=== PATIENT | female | born 1980 | race Caucasian/White ===

== ENCOUNTER 2023-12-30 16:15 | Inpatient (IN) | payer OTHER ==
[2023-12-30 17:58] LABS: PH,URINE 5.5 (5.0-8.0); URINE APPEARANCE CLOUDY; URINE BILIRUBIN NEGATIVE (NEGATIVE); URINE COLOR YELLOW; URINE GLUCOSE (UA) NEGATIVE (NEGATIVE); URINE KETONE NEGATIVE (NEGATIVE); URINE LEUK ESTERASE NEGATIVE (NEGATIVE); URINE NITRITE NEGATIVE (NEGATIVE); URINE PROTEIN NEGATIVE (NEGATIVE); URINE UROBILINOGEN 0.2 mg/dL (0.2-1.0)
[2023-12-30 18:28] LABS: BASO % 0.3 % (0-2.0); LYMPH % 20.8 % (8-40); MCH 29.3 pg (25.7-33.7); MCHC 34.4 g/dl (32.0-36.0); MEAN CELL VOLUME 85.3 fl (80-96); MEAN PLT VOLUME 8.1 fl (7.5-11.1); MONO % 8.6 % (3.8-10.2); NEUT % 69.3 % (42.8-82.8); PLATELET COUNT 203 10^3/uL (134-434); RDW 13.8 % (11.6-15.6); WHITE BLOOD COUNT 8.6 K/mm3 (4.0-10.0)
[2023-12-30 18:35] LABS: INR 0.97 (0.83-1.09)
[2023-12-30 18:38] LABS: ACTIVATED PTT 27.1 SECONDS (25.2-36.5)
[2023-12-30 18:40] LABS: POTASSIUM 4.1 mmol/L (3.5-5.1)
[2023-12-30 18:42] LABS: ALBUMIN 2.4 g/dl (3.4-5.0); BLOOD UREA NITROGEN 8.8 mg/dL (7-18)
[2023-12-30 18:45] LABS: CREATININE 0.6 mg/dL (0.55-1.3)
[2023-12-30 18:47] LABS: BILIRUBIN,TOTAL 0.2 mg/dL (0.2-1); TOT PROT 6.3 g/dl (6.4-8.2)
[2023-12-30 20:43] VITALS: BMI 34.7
[2023-12-30] MEDS: ELECTROLYTE-148 SOLN 500 ML IV ONE (21:30)
[2023-12-30] MEDS ORDERED: OXYTOCIN 30 UNITS in 0.9% NS 30 UNIT/500 ML INFUS.BAG IVPB ONE (21:57)
[2023-12-30] MEDS: OXYTOCIN 30 UNITS in 0.9% NS 30 UNIT/500 ML INFUS.BAG IVPB SCH (22:00)
[2023-12-30] MEDS: ELECTROLYTE-148 SOLN 1,000 ML IV SCH (22:00)
[2023-12-31] MEDS: FAMOTIDINE 20 MG TABLET PO PRN (03:25)
[2023-12-31 08:08] LABS: INR 0.96 (0.83-1.09)
[2023-12-31 08:26] LABS: HEMATOCRIT 33.8 % (32.4-45.2); HEMOGLOBIN 11.6 GM/dL (10.7-15.3); MCH 28.9 pg (25.7-33.7); MCHC 34.4 g/dl (32.0-36.0); MEAN PLT VOLUME 8.3 fl (7.5-11.1); PLATELET COUNT 194 10^3/uL (134-434); RBC 4.03 M/mm3 (3.60-5.2); RDW 14.4 % (11.6-15.6); RETICULOCYTES 1.98 % (0.5-1.5); WHITE BLOOD COUNT 7.9 K/mm3 (4.0-10.0)
[2023-12-31 09:13] LABS: URIC ACID 3.6 mg/dL (2.6-7.2)
[2023-12-31] MEDS ORDERED: FENTANYL/BUPIVACAINE/NS/PF - PCEA - 50 ML DISP.SYRIN EP ONE ×2 (19:12→23:57)
[2023-12-31] MEDS ORDERED: NALOXONE HCL 0.4 MG/ML VIAL IVPUSH PRN (19:23)
[2023-12-31] MEDS ORDERED: FENTANYL CITRATE/PF 50 MCG/ML VIAL ONE (19:25)
[2023-12-31] MEDS ORDERED: BUPIVACAINE HCL/PF 0.25% (2.5MG/ML) 10 ML VIAL ONE (19:25)
[2023-12-31] MEDS: FENTANYL/BUPIVACAINE/NS/PF - PCEA - 50 ML DISP.SYRIN EP SCH (19:30)
[2023-12-31] MEDS: BUTORPHANOL TARTRATE 1 MG/ML VIAL IVPB ONE (20:10)
[2023-12-31] MEDS: PROMETHAZINE HCL 25 MG/1 ML VIAL IVPB ONE (20:10)
[2023-12-31] MEDS ORDERED: OXYTOCIN 20 UNITS in 0.9% NS 20 UNIT/1,000 ML INFUS.BAG IV ONE (20:38)
[2024-01-01] MEDS ORDERED: OXYTOCIN 30 UNITS in 0.9% NS 30 UNIT/500 ML INFUS.BAG IVPB ONE (03:24)
[2024-01-01] MEDS ORDERED: FENTANYL/BUPIVACAINE/NS/PF - PCEA - 50 ML DISP.SYRIN EP ONE (04:54)
[2024-01-01] MEDS: CITRIC ACID/SODIUM CITRATE 30 ML UNIT-DOSE CUP PO ONE ×2 (06:30→10:14)
[2024-01-01] MEDS: ELECTROLYTE-148 SOLN 500 ML IV ONE (06:30)
[2024-01-01] MEDS: ELECTROLYTE-148 SOLN 1,000 ML IV SCH (06:59)
[2024-01-01] MEDS ORDERED: FENTANYL CITRATE/PF 50 MCG/ML VIAL ONE (07:22)
[2024-01-01] MEDS ORDERED: LIDO 2%/EPI 1:200000 PRESRVFRE (20 ML SDVIAL) ONE (07:23)
[2024-01-01] MEDS ORDERED: PHENYLEPHRINE HCL 10 MG/1 ML SINGLE DOSE VIAL ONE (07:39)
[2024-01-01] MEDS ORDERED: SODIUM CHLORIDE 0.9% P/F 10 ML VIAL IJ ONE (07:52)
[2024-01-01] MEDS ORDERED: ceFAZolin SODIUM 1 GM VIAL ONE (07:52)
[2024-01-01] MEDS ORDERED: morphine SULFATE/PF 1 MG/2 ML (2cc Syringe - QUVA) ONE (07:53)
[2024-01-01] MEDS ORDERED: OXYTOCIN 10 UNITS/ML VIAL ONE ×2 (07:58→08:04)
[2024-01-01] MEDS ORDERED: METHYLERGONOVINE MALEATE 0.2 MG/1 ML AMP IM PRN (08:40)
[2024-01-01 09:25] LABS: CORD HCO3 22.4 mmHg (20-29); CORD PCO2 50.7 mmHg (30-78); CORD pH 7.264 (7.14-7.44)
[2024-01-01 09:26] LABS: CORD HCO3 23.7 mmHg (20-29); CORD PCO2 62.3 mmHg (30-78); CORD pH 7.199 (7.14-7.44)
[2024-01-01] MEDS: OXYTOCIN 20 UNITS in 0.9% NS 20 UNIT/1,000 ML INFUS.BAG IV SCH (09:45)
[2024-01-01] MEDS ORDERED: OXYTOCIN 20 UNITS in 0.9% NS 20 UNIT/1,000 ML INFUS.BAG IV ONE (10:00)
[2024-01-01] MEDS: ENOXAPARIN NA (PORCINE) 40 MG/0.4 ML DISP.SYRIN SQ SCH (11:35)
[2024-01-01] MEDS: ACETAMINOPHEN 1000 MG/100 ML BAG IVPB PRN (11:45)
[2024-01-02] MEDS: IBUPROFEN 600 MG TABLET (FP) PO PRN (05:39)
[2024-01-02] MEDS: SIMETHICONE 80 MG TAB.CHEW (FP) PO PRN (05:39)
[2024-01-02 07:04] LABS: BASO % 0.2 % (0-2.0); EOS % 0.3 % (0-4.5); HEMATOCRIT 30.7 % (32.4-45.2); HEMOGLOBIN 10.8 GM/dL (10.7-15.3); LYMPH % 12.2 % (8-40); MCH 29.5 pg (25.7-33.7); MEAN CELL VOLUME 84.2 fl (80-96); MEAN PLT VOLUME 7.8 fl (7.5-11.1); NEUT % 79.3 % (42.8-82.8); PLATELET COUNT 185 10^3/uL (134-434); RBC 3.65 M/mm3 (3.60-5.2); WHITE BLOOD COUNT 9.3 K/mm3 (4.0-10.0)
[2024-01-02] MEDS ORDERED: BISACODYL 10 MG SUPP.RECT RC PRN (08:40)
[2024-01-02] MEDS: oxyCODONE HCL 5 MG TABLET PO PRN (09:16)
[2024-01-03] MEDS: oxyCODONE HCL 5 MG TABLET PO PRN (03:22)
[2024-01-03] MEDS: NIFEdipine E.R. 30 MG TABLET PO SCH (13:35)
[2024-01-03 23:18] VITALS: RESP 18
[2024-01-04 09:04] LABS: BASO % 0.4 % (0-2.0); EOS % 2.3 % (0-4.5); HEMATOCRIT 30.5 % (32.4-45.2); HEMOGLOBIN 10.5 GM/dL (10.7-15.3); LYMPH % 19.5 % (8-40); MCH 28.9 pg (25.7-33.7); MCHC 34.5 g/dl (32.0-36.0); MEAN PLT VOLUME 7.3 fl (7.5-11.1); MONO % 7.6 % (3.8-10.2); NEUT % 70.2 % (42.8-82.8); PLATELET COUNT 238 10^3/uL (134-434); RBC 3.63 M/mm3 (3.60-5.2); RDW 13.9 % (11.6-15.6); WHITE BLOOD COUNT 6.9 K/mm3 (4.0-10.0)
[2024-01-04] MEDS: ACETAMINOPHEN 325 MG TABLET (FP) PO PRN (09:08)
[2024-01-04 17:43] VITALS: BP 147/92; PULSE 105; TEMP 98.1
== END 2024-01-04 20:14 | disposition home or self-care (01) | DRG 788 ==
LOC: JDEL 16:15 → JERBED 19:35 → JLDR 19:53 → J3W 01-01 11:10
PROVIDERS: ADMIT Obstetrics & Gynecology; ATTEND Obstetrics & Gynecology
PROC: 10D00Z1 Extraction of Products of Conception, Low, Open Approach (ICD-10-PCS; principal; 2024-01-01)
DX: O13.4 Gestational [pregnancy-induced] hypertension without significant proteinuria, complicating childbirth (principal); O62.0 Primary inadequate contractions; O61.9 Failed induction of labor, unspecified; O69.81X0 Labor and delivery complicated by cord around neck, without compression, not applicable or unspecified; Z3A.38 38 weeks gestation of pregnancy; Z37.0 Single live birth
CPT/HCPCS: 36415; 36600; 80053; 81003; 82803; 82977; 83010; 84450; 84460; 84550; 85025; 85027; 85045; 85384; 85461; 85610; 85730; 86780; 86850; 86900; 86901; 88307-TC; 94010; 96372; J0131; J2790